=== PATIENT | female | born 1985 | race American Indian/Alaskan Native ===

== ENCOUNTER 2019-01-10 15:16 | Emergency (ER) | payer OTHER ==
[2019-01-10 15:40] VITALS: BP 139/86; PULSE 96
[2019-01-10] MEDS ORDERED: Sodium Chloride 0.9% 10 ML Syringe FLUSH PRN (17:19)
[2019-01-10] MEDS ORDERED: Vancomycin 2 GM in Sodium Chloride 0.9% 500 ML IV ONE (17:19)
[2019-01-10] MEDS ORDERED: Clindamycin Phosphate 900 MG in Sodium Chloride 0.9% 100 ML IV ONE (17:20)
[2019-01-10] MEDS ORDERED: Vancomycin 1 GM SDV ONE (17:24)
[2019-01-10] MEDS ORDERED: Clindamycin Phosphate 900 MG/6 ML SDV ONE (18:38)
[2019-01-10] MEDS ORDERED: Sodium Chloride 0.9% 100 ML ONE (18:39)
--- NOTE | 2019-01-10 19:27 | EDM.PDOC ---
ED HPI GENERAL MEDICAL PROBLEM - General Chief Complaint: Skin Complaint Stated Complaint: LEFT LEG INFECTION Time Seen by Provider: 01/10/19 16:24 Source of Information: Reports: Patient, RN Notes Reviewed - History of Present Illness INITIAL COMMENTS - FREE TEXT/NARRATIVE: 33-year-old female comes in with cellulitis left lower leg. 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 The initial episode was relatively severe requiring IV antibiotics. Second episode this past year was quite mild and did resolve with oral antibiotics. States she first noticed the erythema and mild swelling of her left lower anterior leg yesterday that it has become much worse today. She' s had no fever or chills. No drainage. No recent injury. No other skin lesions at this time. Left Lower Leg Pain Score (Numeric/FACES): 7 - Related Data Allergies Allergy/AdvReac Type Severity Reaction Status Date / Time No Known Allergies Allergy Verified 01/13/19 08:30 Home Meds: Home Meds Levothyroxine 300 mcg PO DAILY 04/08/14 [History] LORazepam 0.5 mg PO BID PRN 04/27/16 [History] Losartan [Cozaar] 50 mg PO DAILY 04/27/16 [History] Omeprazole 20 mg PO BID 04/27/16 [History] Ondansetron 4 mg PO Q8H PRN 04/27/16 [History] Clindamycin HCl 300 mg PO Q6HR #40 capsule 01/10/19 [Rx] metFORMIN [Glucophage XR] 500 mg PO DAILY 01/10/19 [History] Past Medical History HEENT History: Reports: Impaired Vision, Other (See Below) Other HEENT History: wears glasses Cardiovascular History: Reports: Heart Murmur, Hypertension Other Cardiovascular History: murmur detected as Respiratory History: Reports: None Gastrointestinal History: Reports: Colon Polyp, Gastritis, GERD, Hiatal Hernia, Other (See Below) Other Gastrointestinal History: globus sensation, esophageal ulcers, gastric polyps, gastric mass, gastric diverticulum, abdominal pain, gallbladder removed Genitourinary History: Reports: None [employer] History: Reports: Other (See Below) Other [employer] History: removal of ovarian cysts, dysmenorrhea, uterine fibroid, menorrhagia Musculoskeletal History: Reports: Other (See Below) Other Musculoskeletal History: at age 12 broke neck and required pins and rods in her cervical area, plantar fasciitis, low back pain Neurological History: Reports: Concussion, Headaches, Chronic Psychiatric History: Reports: Anxiety, Depression, Other (See Below) Other Psychiatric History: daytime somnolence, fatigue, weight gain Endocrine/Metabolic History: Reports: Hypothyroidism, Obesity/BMI 30+, Vitamin D Deficiency, Other (See Below) Other Endocrine/Metabolic History: pt had a right partial throidectomy, thyroid nodules Hematologic History: Reports: Anemia Immunologic History: Reports: None Oncologic (Cancer) History: Reports: None Dermatologic History: Reports: Cellulitis - Infectious Disease History Infectious Disease History: Reports: MRSA - Past Surgical History HEENT Surgical History: Reports: Tonsillectomy, Other (See Below) Female Surgical History: Reports: Other (See Below) Endocrine Surgical History: Reports: Other (See Below) Musculoskeletal Surgical History: Reports: Other (See Below) Dermatological Surgical History: Reports: None Social & Family History - Family History Family Medical History: Unobtainable Other HEENT Family History: pt reports that she is adopted and does not know any family history of her biological family - Tobacco Use Smoking Status *Q: Never Smoker - Caffeine Use Caffeine Use: Reports: Energy Drinks - Recreational Drug Use Recreational Drug Use: No ED ROS GENERAL - Review of Systems Review Of Systems: See Below Constitutional: Denies: Fever, Chills HEENT: Denies: Throat Pain Respiratory: Denies: Shortness of Breath Cardiovascular: Denies: Chest Pain GI/Abdominal: Denies: Abdominal Pain, Nausea, Vomiting Musculoskeletal: Reports: Leg Pain Skin: Reports: Erythema (area of erythema and swelling L lower ant leg), Other ( no other lesions) Neurological: Denies: Numbness, Tingling ED EXAM, SKIN/RASH Exam: See Below General Appearance: Alert, No Apparent Distress Throat/Mouth: Normal Inspection, Normal Oropharynx Head: Atraumatic. No: Facial Swelling Neck: Supple, Full Range of Motion Respiratory/Chest: No Respiratory Distress, Lungs Clear, Normal Breath Sounds Cardiovascular: Regular Rate, Rhythm Extremities: Redness (there is an area of erythema, mild swelling L lower ant. leg, mildly tender, not fluctuant, no drainage) Neurological: No Motor/Sensory Deficits Skin: Warm, Dry, Normal Color, Other (skin otherwise clear) Course - Vital Signs Last Recorded V/S: Last Vital Signs Temp 98.8 F 01/10/19 15:37 Pulse 96 01/10/19 15:37 Resp 18 01/10/19 15:37 BP 139/86 01/10/19 15:37 Pulse Ox 96 01/10/19 15:37 - Orders/Labs/Meds Labs: Laboratory Tests 01/10/19 01/10/19 Range/Units 15:58 15:58 WBC 8.73 (3.98-10.04) K/mm3 RBC 4.62 (3.98-5.22) M/mm3 Hgb 13.7 D (11.2-15.7) gm/dl Hct 40.6 (34.1-44.9) % MCV 87.9 D (79.4-94.8) fl MCH 29.7 (25.6-32.2) pg MCHC 33.7 (32.2-35.5) g/dl RDW Std Deviation 46.9 H (36.4-46.3) fL Plt Count 207 D (182-369) K/mm3 MPV 8.8 L (9.4-12.3) fl Neut % (Auto) 83.8 H (34.0-71.1) % Lymph % (Auto) 6.5 L (19.3-51.7) % Lea % (Auto) 6.8 (4.7-12.5) % Eos % (Auto) 1.7 (0.7-5.8) Baso % (Auto) 0.5 (0.1-1.2) % Neut # (Auto) 7.32 H (1.56-6.13) K/mm3 Lymph # (Auto) 0.57 L (1.18-3.74) K/mm3 Lea # (Auto) 0.59 H (0.24-0.36) K/mm3 Eos # (Auto) 0.15 (0.04-0.36) K/mm3 Baso # (Auto) 0.04 (0.01-0.08) K/mm3 Manual Slide Review Sodium 138 (136-145) mEq/L Potassium 3.9 (3.5-5.1) mEq/L Chloride 104 (98-107) mEq/L Carbon Dioxide 28 (21-32) mEq/L Anion Gap 9.9 (5-15) BUN 20 H (7-18) mg/dL Creatinine 0.6 (0.55-1.02) mg/dL Est Cr Clr Drug Dosing 127.26 mL/min Estimated GFR (MDRD) > 60 (>60) mL/min BUN/Creatinine Ratio 33.3 H (14-18) Glucose 92 (74-106) mg/dL Calcium 8.9 (8.5-10.1) mg/dL Total Bilirubin 0.9 (0.2-1.0) mg/dL AST 14 L (15-37) U/L ALT 36 (14-59) U/L Alkaline Phosphatase 73 (46-116) U/L C-Reactive Protein 8.3 H* (<1.0) mg/dL Total Protein 7.2 (6.4-8.2) g/dl Albumin 3.7 (3.4-5.0) g/dl Globulin 3.5 gm/dL Albumin/Globulin Ratio 1.1 (1-2) Meds: Medications Discontinued Medications Generic Name Dose Route Start Last Admin Trade Name Freq PRN Reason Stop Dose Admin Clindamycin Phosphate Confirm 01/10/19 18:38 01/10/19 19:19 Cleocin Administered 01/10/19 18:39 Not Given Dose 900 mg .ROUTE .STK-MED ONE Vancomycin HCl 2 gm/ Sodium 500 mls @ 250 mls/hr 01/10/19 17:19 01/10/19 17: 39 Chloride IV 01/10/19 17:20 250 mls/hr ONETIME ONE Administration Clindamycin Phosphate 900 mg/ 106 mls @ 200 mls/hr 01/10/19 17:20 01/10/19 19 :37 Sodium Chloride IV 01/10/19 17:51 200 mls/hr ONETIME ONE Administration Sodium Chloride Confirm 01/10/19 18:39 01/10/19 19:19 Normal Saline Administered 01/10/19 18:40 Not Given Dose 100 mls @ as directed .ROUTE .STK-MED ONE Sodium Chloride 10 ml 01/10/19 17:19 01/10/19 17:39 Saline Flush FLUSH 10 ml ASDIRECTED PRN Administration Keep Vein Open Vancomycin HCl Confirm 01/10/19 17:24 01/10/19 17:46 Vancomycin Administered 01/10/19 17:25 Not Given Dose 1 gm .ROUTE .STK-MED ONE - Re-Assessments/Exams Free Text/Narrative Re-Assessment/Exam: 01/18/19 09:12 Have given IV vancomycin and clindamycin, Have set her up for outpatient IV Vancomycin bid for 3 days, oral clindamycin, discharge instr. as documented. Departure - Departure Time of Disposition: 19:23 Disposition: Home, Self-Care 01 Condition: Fair Clinical Impression: Cellulitis - Discharge Information Prescriptions: Clindamycin HCl 300 mg PO Q6HR #40 capsule Instructions: Cellulitis, Adult, [id number] Referrals: Faith Krishna PA-C [Primary Care Provider] - Forms: ED Department Discharge, ED Return to Work/School Form Additional Instructions: Clindamycin antibiotic 300 mg 4 times daily for 10 days. 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 Return to hospital for outpatient IV vancomycin 2 g twice daily for a total of 5 more doses that will take you through Tuesday. Return to the hospital about 8 AM and 8 PM twice daily for the medication to be given. Return to ED Tuesday either during or after IV antibiotic dosage for recheck of your left leg. Return to ED at any time if symptoms worsening in any way. Rest leg, no work recommended the remainder of this week.
== END 2019-01-10 20:15 | disposition home or self-care (01) ==
LOC: JD.ED 15:16
DX: L03.116 Cellulitis of left lower limb (principal); K21.9 Gastro-esophageal reflux disease without esophagitis; E03.9 Hypothyroidism, unspecified; F41.9 Anxiety disorder, unspecified; F32.9 Major depressive disorder, single episode, unspecified; E66.9 Obesity, unspecified; Z68.42 Body mass index [BMI] 45.0-49.9, adult; Z79.899 Other long term (current) drug therapy
CPT/HCPCS: 36415; 80053; 85025; 86140; 96365; 96366; 96367; 99284; J3370; J3490; J7030; J7040

== ENCOUNTER 2019-08-09 16:51 | Emergency (ER) | payer OTHER ==
[2019-08-09] MEDS ORDERED: Ibuprofen 600 MG Tab PO ONE (17:21)
--- NOTE | 2019-08-09 17:24 | EDM.PDOC ---
ED HPI GENERAL MEDICAL PROBLEM - General Chief Complaint: Skin Complaint Stated Complaint: FEVER/STAPH INFECTION OF LEFT LEG Time Seen by Provider: 08/09/19 17:10 Source of Information: Reports: Patient History Limitations: Reports: No Limitations - History of Present Illness INITIAL COMMENTS - FREE TEXT/NARRATIVE: 4-year-old female of [place] ancestry presents to the ED with painful swelling and fever. She states that she developed swelling left lower anterior martinez or leg last evening which has progressively worsened as the day has gone on. She did finish out work today but found it very difficult to walk by the end of the shift. She is also developed a fever and mild nausea. Has type 2 diabetes controlled with metformin. She has a history of recurrent cellulitis involving the left lower extremity dating back to 2016 when she was admitted to the hospital here for IV antibiotic therapy. There was no trauma or injury to the area that was ever identified to cause the infection. She is developed a few low-grade infections in the area that got better with oral antibiotics and she was seen here last year for cellulitis of the left lower extremity treated as an outpatient for antibiotic therapy. Onset: Gradual Onset Date: 08/08/19 (Noted tenderness left martinez anterior leg last night.) Duration: Hour(s):, Getting Worse Location: Reports: Lower Extremity, Left (Development of a rash and pain and swelling left anterior lower leg at site of previous MRSA infection on a recurrent basis since 2016.) Quality: Reports: Ache, Throbbing Severity: Moderate (Pain is 7 out of 10) Improves with: Reports: Rest Worsens with: Reports: Other (Worse with walking.) Context: Reports: Other (Reason for recurrent infection). Denies: Activity, Exercise, Lifting, Sick Contact, Trauma Associated Symptoms: Reports: Fever/Chills, Loss of Appetite, Malaise. Denies: Chest Pain, Cough, cough w sputum, Diaphoresis, Headaches, Nausea/Vomiting ( Illes febrile), Rash, Seizure, Shortness of Breath, Syncope Treatments PIPE FITTER AMMONIA: Reports: Other (see below) (.) - Related Data Allergies Allergy/AdvReac Type Severity Reaction Status Date / Time No Known Allergies Allergy Verified 01/13/19 08:30 Home Meds: Home Meds Levothyroxine 300 mcg PO DAILY 04/08/14 [History] LORazepam 0.5 mg PO BID PRN 04/27/16 [History] Losartan [Cozaar] 50 mg PO DAILY 04/27/16 [History] Omeprazole 20 mg PO BID 04/27/16 [History] Ondansetron 4 mg PO Q8H PRN 04/27/16 [History] metFORMIN [Glucophage XR] 500 mg PO DAILY 01/10/19 [History] Cefdinir [Omnicef] 300 mg PO BID #14 cap 08/09/19 [Rx] Doxycycline [Vibramycin 25 MG/5 ML Susp] 100 mg PO Q12H #28 bottle 08/09/19 [Rx] oxyCODONE HCl/Acetaminophen [Percocet 5-325 mg Tablet] 1 - 2 each PO Q4H PRN # 20 tablet 08/09/19 [Rx] Past Medical History HEENT History: Reports: Impaired Vision, Other (See Below) Other HEENT History: wears glasses Cardiovascular History: Reports: Heart Murmur, Hypertension Other Cardiovascular History: murmur detected as infant Respiratory History: Reports: None Gastrointestinal History: Reports: Colon Polyp, Gastritis, GERD, Hiatal Hernia, Other (See Below) Other Gastrointestinal History: globus sensation, esophageal ulcers, gastric polyps, gastric mass, gastric diverticulum, abdominal pain, gallbladder removed Genitourinary History: Reports: None TRAFFIC SAFETY ADMINISTRATOR History: Reports: Other (See Below) Other TRAFFIC SAFETY ADMINISTRATOR History: removal of ovarian cysts, dysmenorrhea, uterine fibroid, menorrhagia Musculoskeletal History: Reports: Other (See Below) Other Musculoskeletal History: at age 12 broke neck and required pins and rods in her cervical area, plantar fasciitis, low back pain Neurological History: Reports: Concussion, Headaches, Chronic Psychiatric History: Reports: Anxiety, Depression, Other (See Below) Other Psychiatric History: daytime somnolence, fatigue, weight gain Endocrine/Metabolic History: Reports: Hypothyroidism, Obesity/BMI 30+, Vitamin D Deficiency, Other (See Below) Other Endocrine/Metabolic History: pt had a right partial throidectomy, thyroid nodules Hematologic History: Reports: Anemia Immunologic History: Reports: None Oncologic (Cancer) History: Reports: None Dermatologic History: Reports: Cellulitis - Infectious Disease History Infectious Disease History: Reports: MRSA - Past Surgical History HEENT Surgical History: Reports: Tonsillectomy, Other (See Below) Female Surgical History: Reports: Other (See Below) Endocrine Surgical History: Reports: Other (See Below) Musculoskeletal Surgical History: Reports: Other (See Below) Dermatological Surgical History: Reports: None Social & Family History - Family History Family Medical History: Unobtainable Other HEENT Family History: pt reports that she is adopted and does not know any family history of her biological family - Tobacco Use Smoking Status *Q: Never Smoker - Caffeine Use Caffeine Use: Reports: Soda Other Caffeine Use: diet - Recreational Drug Use Recreational Drug Use: No - Living Situation & Occupation Living situation: Reports: Occupation: Employed ED ROS GENERAL - Review of Systems Review Of Systems: See Below Constitutional: Reports: Fever, Malaise, Weakness, Fatigue, Decreased Appetite HEENT: Reports: No Symptoms Respiratory: Reports: No Symptoms Cardiovascular: Reports: No Symptoms Endocrine: Reports: Fatigue GI/Abdominal: Reports: Nausea (Nausea) Musculoskeletal: Reports: Leg Pain (Severe aching pain left anterior lower leg at site of rash development. The same site as previous MRSA infections off and on since 2016) Skin: Reports: Rash (Purpleish discolored raised rash in an area approximately 10 cm x 7 cm left lower anterior martinez or leg which is very tender and very warm to palpation.), Erythema Neurological: Reports: No Symptoms Psychiatric: Reports: No Symptoms Hematologic/Lymphatic: Reports: No Symptoms Immunologic: Reports: No Symptoms ED EXAM, SKIN/RASH Exam: See Below Exam Limited By: No Limitations General Appearance: Alert, WD/WN, Mild Distress, Other (Does feel febrile. Temperature is recorded at 37.9 heart rate 114 at rest respiratory of 20 with O2 sats of 94% on room air BP 126/85.) Eye Exam: Bilateral Eye: Normal Inspection, PERRL Throat/Mouth: Normal Inspection, Normal Lips, Normal Teeth, Normal Oropharynx, Normal Voice Head: Atraumatic, Normocephalic Neck: Normal Inspection, Supple, Non-Tender, Full Range of Motion. No: Lymphadenopathy (L), Lymphadenopathy (R) Respiratory/Chest: No Respiratory Distress, Lungs Clear, Normal Breath Sounds, Chest Non-Tender, Respiratory Distress (Tachypnea) Cardiovascular: Normal Peripheral Pulses, Regular Rate, Rhythm, No Edema, No Gallop, No Murmur, No Rub, Tachycardia (Resting tachycardia 114/min.) Peripheral Pulses: 1+: Posterior Tibial (L), Posterior Tibial (R), Dorsalis Pedis (L), Dorsalis Pedis (R), 3+: Carotid (L), Carotid (R) GI/Abdominal: Normal Bowel Sounds, Soft, Non-Tender, No Organomegaly, No Mass, Pelvis Stable, Other (Previous cholecystectomy and she says laparotomy for removal of fibroids from her uterus and a left ovarian cystectomy) Back Exam: Normal Inspection, Full Range of Motion. No: CVA Tenderness (L), CVA Tenderness (R) Extremities: Other (She has an area of erythema with a purplish raised bubbly rash over the anterior aspect of her lower left tibia. It is approximately 10 cm in length and 6 cm in width. It is very warm to the patient and very tender to touch. It is definitely raised from the surrounding skin. No open wounds or active drainage.) Neurological: Alert, Oriented, CN II-XII Intact, Normal Cognition, Other (Pain gait) Psychiatric: Normal Affect, Normal Mood Skin: Warm, Dry, Normal Color, Other (Cellulitis with rash left anterior lower leg.) Location, Skin: Lower Extremity, Left (Left anterior martinez) Characteristics: Papular, Vesicular Associated features: Warmth, Tenderness, Swelling, Inflammation Course - Vital Signs Last Recorded V/S: Last Vital Signs Temp 37.7 C 08/09/19 18:55 Pulse 114 H 08/09/19 17:08 Resp 20 08/09/19 17:08 BP 126/85 08/09/19 17:08 Pulse Ox 94 L 08/09/19 17:08 - Orders/Labs/Meds Orders: Active Orders 24 hr Category Date Time Status CULTURE BLOOD [BC] Stat Lab 08/09/19 17:36 Received CULTURE BLOOD [BC] Stat Lab 08/09/19 17:49 Received Sodium Chloride 0.9% [Normal Saline] 1,000 ml Med 08/09/19 17:30 Active IV ASDIRECTED Blood Culture x2 Reflex Set [OM.PC] Stat Oth 08/09/19 17:19 Ordered Medication Orders Sodium Chloride (Normal Saline) 1,000 mls @ 150 mls/hr IV ASDIRECTED RONALD Last Admin: 08/09/19 17:41 Dose: 150 mls/hr Labs: Laboratory Tests 08/09/19 08/09/19 08/09/19 Range/Units 17:36 17:36 17:36 WBC 10.79 H (3.98-10.04) K/mm3 RBC 4.68 (3.98-5.22) M/mm3 Hgb 14.1 (11.2-15.7) gm/dl Hct 42.1 (34.1-44.9) % MCV 90.0 (79.4-94.8) fl MCH 30.1 (25.6-32.2) pg MCHC 33.5 (32.2-35.5) g/dl RDW Std Deviation 44.0 (36.4-46.3) fL Plt Count 293 D (182-369) K/mm3 MPV 9.6 (9.4-12.3) fl Neutrophils % (Manual) 80 H (40-60) % Band Neutrophils % 3 (0-10) % Lymphocytes % (Manual) 11 L (20-40) % Atypical Lymphs % 0 % Monocytes % (Manual) 6 (2-10) % Eosinophils % (Manual) 0 L (0.7-5.8) % Basophils % (Manual) 0 L (0.1-1.2) Platelet Estimate Adequate RBC Morph Comment Normal Sodium 139 (136-145) mEq/L Potassium 3.6 (3.5-5.1) mEq/L Chloride 104 (98-107) mEq/L Carbon Dioxide 23 (21-32) mEq/L Anion Gap 15.6 H (5-15) BUN 13 (7-18) mg/dL Creatinine 0.8 (0.55-1.02) mg/dL Est Cr Clr Drug Dosing 94.54 mL/min Estimated GFR (MDRD) > 60 (>60) mL/min BUN/Creatinine Ratio 16.3 (14-18) Glucose 125 H (74-106) mg/dL Hemoglobin A1c (4.50-6.20) % Lactic Acid 1.1 (0.4-2.0) mmol/L Calcium 8.3 L (8.5-10.1) mg/dL Magnesium 1.3 L (1.8-2.4) mg/dl Total Bilirubin 0.7 (0.2-1.0) mg/dL AST 12 L (15-37) U/L ALT 29 (14-59) U/L Alkaline Phosphatase 67 (46-116) U/L C-Reactive Protein 5.7 H* (<1.0) mg/dL Total Protein 7.5 (6.4-8.2) g/dl Albumin 3.5 (3.4-5.0) g/dl Globulin 4.0 gm/dL Albumin/Globulin Ratio 0.9 L (1-2) Urine Color (Yellow) Urine Appearance (Clear) Urine pH (5.0-8.0) Ur Specific [place] (1.005-1.030) Urine Protein (Negative) Urine Glucose (UA) (Negative) Urine Ketones (Negative) Urine Occult Blood (Negative) Urine Nitrite (Negative) Urine Bilirubin (Negative) Urine Urobilinogen (0.2-1.0) Ur Leukocyte Esterase (Negative) Urine RBC (0-5) /hpf Urine WBC (0-5) /hpf Ur Squamous Epith Cells (0-5) /hpf Urine Bacteria (FEW) /hpf Urine Mucus (FEW) /hpf 08/09/19 08/09/19 Range/Units 17:36 17:47 WBC (3.98-10.04) K/mm3 RBC (3.98-5.22) M/mm3 Hgb (11.2-15.7) gm/dl Hct (34.1-44.9) % MCV (79.4-94.8) fl MCH (25.6-32.2) pg MCHC (32.2-35.5) g/dl RDW Std Deviation (36.4-46.3) fL Plt Count (182-369) K/mm3 MPV (9.4-12.3) fl Neutrophils % (Manual) (40-60) % Band Neutrophils % (0-10) % Lymphocytes % (Manual) (20-40) % Atypical Lymphs % % Monocytes % (Manual) (2-10) % Eosinophils % (Manual) (0.7-5.8) % Basophils % (Manual) (0.1-1.2) Platelet Estimate RBC Morph Comment Sodium (136-145) mEq/L Potassium (3.5-5.1) mEq/L Chloride (98-107) mEq/L Carbon Dioxide (21-32) mEq/L Anion Gap (5-15) BUN (7-18) mg/dL Creatinine (0.55-1.02) mg/dL Est Cr Clr Drug Dosing mL/min Estimated GFR (MDRD) (>60) mL/min BUN/Creatinine Ratio (14-18) Glucose (74-106) mg/dL Hemoglobin A1c 5.10 (4.50-6.20) % Lactic Acid (0.4-2.0) mmol/L Calcium (8.5-10.1) mg/dL Magnesium (1.8-2.4) mg/dl Total Bilirubin (0.2-1.0) mg/dL AST (15-37) U/L ALT (14-59) U/L Alkaline Phosphatase (46-116) U/L C-Reactive Protein (<1.0) mg/dL Total Protein (6.4-8.2) g/dl Albumin (3.4-5.0) g/dl Globulin gm/dL Albumin/Globulin Ratio (1-2) Urine Color Yellow (Yellow) Urine Appearance Clear (Clear) Urine pH 7.0 (5.0-8.0) Ur Specific [place] 1.025 (1.005-1.030) Urine Protein 1+ H (Negative) Urine Glucose (UA) Negative (Negative) Urine Ketones Negative (Negative) Urine Occult Blood 2+ H (Negative) Urine Nitrite Negative (Negative) Urine Bilirubin Negative (Negative) Urine Urobilinogen 0.2 (0.2-1.0) Ur Leukocyte Esterase Negative (Negative) Urine RBC 10-20 H (0-5) /hpf Urine WBC 0-5 (0-5) /hpf Ur Squamous Epith Cells 5-10 H (0-5) /hpf Urine Bacteria Few (FEW) /hpf Urine Mucus Few (FEW) /hpf Meds: Medications Generic Name Dose Route Start Last Admin Trade Name Freq PRN Reason Stop Dose Admin Sodium Chloride 1,000 mls @ 150 mls/hr 08/09/19 17:30 08/09/19 17:41 Normal Saline IV 150 mls/hr ASDIRECTED RONALD Administration Discontinued Medications Generic Name Dose Route Start Last Admin Trade Name Freq PRN Reason Stop Dose Admin Doxycycline Hyclate 200 mg 08/09/19 18:46 08/09/19 18:55 Vibramycin PO 08/09/19 18:47 200 mg ONETIME ONE Administration Linezolid 600 mg/ Premix 300 mls @ 300 mls/hr 08/09/19 17:31 08/09/19 18:06 IV 08/09/19 18:30 300 mls/hr ONETIME ONE Administration Ibuprofen 600 mg 08/09/19 17:21 08/09/19 17:57 Motrin PO 08/09/19 17:22 600 mg ONETIME ONE Administration - Radiology Interpretation Free Text/Narrative:: 34-year-old female who is a type II diabetic presents to the ED with a rash that is quite painful and has developed over the last 24 hours left anterior lower leg. No known trauma to the area. She indicates that she has had MRSA infection in this area approximately 4-5 times dating back to 2016 when she was hospitalized for IV antibiotic therapy. No open wounds or source for the recurrent staph infection has ever been identified. She sometimes can get away with taking oral antibiotics but last year had to have IV antibiotics for treatment as well. Please she is febrile and is showing evidence of systemic infection. And she will have a septic work-up carried out and be started on IV antibiotics as soon as blood cultures x2 are collected. - Re-Assessments/Exams Free Text/Narrative Re-Assessment/Exam: 08/09/19 18:45 Hematology reveals a white count of 10.79 with a left shift of 80 % neutrophils and 3% bands. Hemoglobin is 14.1 hematocrit is 42.1. Platelet count 293,000. Chemistry shows a sodium of 139 and a potassium of 3.6. Chloride is 104 with a bicarb of 23. Anion gap is slightly elevated at 15.6. BUN is 13 with a creatinine of 0.8. GFR remains greater than 60. Glucose is 125 hemoglobin A1c is 5.10 indicating her sugars are very well controlled. Lactic acid is 1.1. Calcium is 8.3 magnesium is low at 1.3. Liver function normal C-reactive protein is 5.7. Total protein is 7.5 albumin fraction 3.5. Urinalysis shows 1+ proteinuria and 2+ occult blood but the slide shows negative leukocytes esterase esterase 10-20 red blood cells per high-power field 0-5 white cells. At some point time she needs follow-up of microhematuria. Disussed the results with the patient and decision made to try treatment as an outpatient. I will give her the next 3 days off work until next Tuesday. She will be placed on doxycycline 100 mg twice daily for 10 days and Omnicef 300 mg twice daily for 7 days. Return if she gets fever chills nausea or vomiting or is unable to keep down oral meds or if not markedly improved in 48 to 72 hours time. We will give her Percocet tabs 5/325 mg x 16 tablets for pain relief. 1 or 2 every 4-6 hours as needed. She can also continue Motrin 600 mg every 6 hours for fever and pain relief. Departure - Departure Time of Disposition: 19:30 Disposition: Home, Self-Care 01 Condition: Fair Clinical Impression: Cellulitis of left lower leg - Discharge Information *PRESCRIPTION DRUG MONITORING PROGRAM REVIEWED*: Not Applicable *COPY OF PRESCRIPTION DRUG MONITORING REPORT IN PATIENT [place]: Not Applicable Prescriptions: Cefdinir [Omnicef] 300 mg PO BID #14 cap Doxycycline [Vibramycin 25 MG/5 ML Susp] 100 mg PO Q12H #28 bottle oxyCODONE HCl/Acetaminophen [Percocet 5-325 mg Tablet] 1 - 2 each PO Q4H PRN # 20 tablet PRN Reason: pain relief. Instructions: Cellulitis, Adult Referrals: Faith Krishna PA-C [Primary Care Provider] - Forms: ED Department Discharge, ED Return to Work/School Form Additional Instructions: Evaluation in the emergency room today in regards to development of increased pain and swelling and rash left lower anterior leg at the site of previous staph aureus infections. 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 It seems to flareup and come back periodically. This revealed only a slightly elevated white blood cell count and no signs of developing severe systemic infection. Did have a fever on arrival however. You were treated with intravenous Zyvox which kills staph aureus and particularly the MRSA organism. You are also started on doxycycline in the emergency department. You will need to continue Motrin 600 mg every 6 hours for fever and inflammation relief until pain and swelling and fever go away. This will likely be at least a day and a half. Antibiotics are to be doxycycline 100 mg twice daily for the next 2 weeks to make sure that MRSA infection in the leg clears up completely. Also antibiotic Omnicef 300 mg twice daily for the next 7 days to help clear up infection as well. Percocet tabs 5/325 mg tabs 1 or 2 every 4-6 hours for pain relief for the next few days until the antibiotics become effective. You should not operate a motor vehicle if you are taking the tablets. Work until Tuesday next week. Try and elevate the leg as much as possible and get rest at until the infection improves. You would need to return to the emergency department if you develop nausea vomiting, severe fever or chills or unable to keep down your medication. Sepsis Event Note - Evaluation Sepsis Screening Result: No Definite Risk - Focused Exam Vital Signs: Vital Signs Temp Temp Pulse Resp BP Pulse Ox 08/09/19 18:55 37.7 C 08/09/19 17:57 37.7 C 08/09/19 17:08 37.9 C 114 H 20 126/85 94 L Date Exam was Performed: 08/09/19 Time Exam was Performed: 19:15 - My Orders Last 24 Hours: My Active Orders 08/09/19 17:19 Blood Culture x2 Reflex Set [OM.PC] Stat 08/09/19 17:30 Sodium Chloride 0.9% [Normal Saline] 1,000 ml IV ASDIRECTED 08/09/19 17:36 CULTURE BLOOD [BC] Stat 08/09/19 17:49 CULTURE BLOOD [BC] Stat - Assessment/Plan Last 24 Hours: My Active Orders 08/09/19 17:19 Blood Culture x2 Reflex Set [OM.PC] Stat 08/09/19 17:30 Sodium Chloride 0.9% [Normal Saline] 1,000 ml IV ASDIRECTED 08/09/19 17:36 CULTURE BLOOD [BC] Stat 08/09/19 17:49 CULTURE BLOOD [BC] Stat
[2019-08-09] MEDS ORDERED: Sodium Chloride 0.9% 1,000 ML IV SCH (17:30)
[2019-08-09] MEDS ORDERED: Linezolid 600 MG in Premix Bag 1 BAG IV ONE (17:31)
[2019-08-09 18:22] LABS: HEMOGLOBIN A1C 5.1 % (4.50-6.20)
[2019-08-09] MEDS ORDERED: Doxycycline 100 MG Cap PO ONE (18:46)
[2019-08-09 19:20] VITALS: BP 135/93; PULSE 103
== END 2019-08-09 19:32 | disposition home or self-care (01) ==
LOC: JD.ED 16:51
DX: L03.116 Cellulitis of left lower limb (principal); E03.9 Hypothyroidism, unspecified; E66.9 Obesity, unspecified; Z68.42 Body mass index [BMI] 45.0-49.9, adult; I10 Essential (primary) hypertension; K21.9 Gastro-esophageal reflux disease without esophagitis; Z79.899 Other long term (current) drug therapy
CPT/HCPCS: 36415; 80053; 81001; 83036; 83605; 83735; 85007; 85027; 86140; 87040; 96365; 99283; A9270; J2020; J7030